=== PATIENT | female | born 1945 | race Caucasian/White ===

== ENCOUNTER → 2019-02-07 | Outpatient (CLI) | payer MEDICARE ==
--- NOTE | 2019-02-07 18:30 | REP ---
LEFT LOWER EXTREMITY DUPLEX DOPPLER ARTERIAL ULTRASOUND: Real-time ultrasound evaluation and duplex Doppler interrogation of the left lower extremity arterial system is performed. The patient has a patent bypass graft connecting the left common femoral artery to the tibial peroneal trunk. The intervening [place] superficial femoral artery is occluded and there is reversal of flow in the left popliteal artery. Diffuse biphasic waveforms are noted. The proximal anterior tibial artery is supplied by the flow from the popliteal and tibial peroneal trunk, proximal aspect. Plaquing is seen in the common femoral artery with increased flow velocity suggesting some degree of stenosis. LEFT PSV Common femoral artery 262 cm/s Profunda 124 cm/s Bypass graft proximal anastomosis 193 cm/s Proximal bypass graft 93 cm/s Distal bypass graft 71.5 cm/s Tibial peroneal trunk bypass graft 68.1 cm/s Proximal MEET 64.4 cm/s Tibial peroneal trunk 110 cm/s Proximal STAFF DEVELOPMENT NURSE 163 cm/s Distal STAFF DEVELOPMENT NURSE 51.8 cm/s Distal MEET 75.7 cm/s Incidental note is made of a Pérez's cyst 3.3 x 1.0 x 1.7 cm. IMPRESSION: Patent bypass graft connecting the common femoral artery to the tibial peroneal trunk with intervening occlusion of the [place] superficial femoral artery and reversal of flow in the popliteal artery which supplies the proximal MEET. There may be some degree of stenosis of the common femoral artery with elevated peak systolic velocity and plaquing noted. Electronically Signed by Luciano Jose MD 02/10/2019 10:05 A
--- NOTE | 2019-02-07 18:52 | REP ---
Duplex carotid sonography: History: Carotid stenosis. Status post bypass graft. Findings: Antegrade flow is observed in both vertebral arteries. Right carotid: The right common carotid artery is unremarkable on two-dimensional scanning. There is mild mixed plaquing in the bulb and proximal ICA on the right side. Color flow and spectral Doppler interrogation are unremarkable in the ICA. Mildly elevated systolic velocities are observed in the external carotid artery. Velocity chart right carotid: CCA PSV 91 cm/s ICA PSV 98 cm/s ICA EDV 17 cm/s ECA PSV 185 cm/s Right ICA/CCA ratio normal 1.1 Impression: Less than 50% narrowing in the ICA on the right side by velocity criteria. Left carotid: Left common carotid artery is unremarkable on two-dimensional scanning. There is mild mixed plaquing in the bulb and proximal ICA. Stenotic systolic velocities are observed in the ICA tracing on the left side. Mildly elevated ECA velocities are observed. Velocity chart left carotid: CCA PSV 115 cm/s ICA PSV 260 cm/s ICA EDV 35 cm/s ECA PSV 162 cm/s Left ICA/CCA ratio elevated 2.3. Impression: 50%-69% category narrowing in the left ICA by Doppler velocity criteria, probably near the upper end of this range. Electronically Signed by Vidal James MD 02/07/2019 07:31 P
== END ==
LOC: M RAD 12:13
PROVIDERS: ATTEND Physician Assistant Medical
DX: I65.23 Occlusion and stenosis of bilateral carotid arteries (principal); I77.1 Stricture of artery

== ENCOUNTER → 2020-02-01 | Outpatient (CLI) | payer MEDICARE ==
--- NOTE | 2020-02-01 11:54 | REP ---
Unilateral left lower extremity arterial Doppler ultrasound: History: "Leg bypass ". Comparison study February 07, 2019. Findings: Ankle brachial index could not be acquired due to noncompressible vessels. A patent bypass graft is seen from the right common femoral to the tibioperoneal trunk. The [place] superficial femoral artery is occluded with reversed reconstituted flow in the popliteal. Biphasic waveforms are noted in the left lower extremity. Extensive calcific plaquing is seen in the common femoral artery and [place] femoral artery with elevated velocities suggesting stenosis. A proximal anterior tibial artery stenosis is suspected. There is little change from the comparison study. Left lower extremity arterial Doppler velocity chart: Proximal bypass graft anastomosis 239 cm/S Mid graft 76 Distal thigh 60 Popliteal fossa graft 46 Distal anastomoses 46 Left CF A 275 cm/S Profunda 237 - 119 Proximal SFA O occluded Mid SFA occluded Distal SFA occluded Popliteal reverse flow 40 cm/S Proximal AT A 256 - 141 Tibioperoneal trunk 46 Proximal EMERGENCY ROOM CLINICIAN 70 Distal EMERGENCY ROOM CLINICIAN 42 Distal AT A 73 Electronically Signed by Vidal James MD 02/01/2020 11:46 A
--- NOTE | 2020-02-01 12:07 | REP ---
Duplex carotid sonography: History: Carotid stenosis. Comparison study February 07, 2019. Findings: Antegrade flow is again observed in both vertebral arteries. A Right carotid: Right common carotid artery shows minimal diffuse intimal thickening. There is mixed plaquing in the bulb and proximal ICA on two-dimensional scanning. Color flow and spectral Doppler interrogation are unremarkable on the right. Velocity chart right carotid: Right CCA PSV 81 cm/S Right ICA PSV 112 Right ICA EDV 26 Right ECA PSV 172 Right ICA/cc ratio normal 1.3 Impression: Less than 50% category narrowing in the right ICA by Doppler velocity criteria. Doppler velocities have not changed significantly from the prior study. Left carotid: The left common carotid artery shows mild diffuse intimal thickening. There is mixed plaquing in the bulb proximal ICA and proximal ECA on the left side on two-dimensional scanning. Stenotic flow velocities is observed in the ICA segment on the left and to some degree in the ECA similar to the prior study. Velocity chart left carotid: Left CCA PSV 96 cm/S ICA PSV 200.5 cm/S E DV 34 cm/S ECA PSV 190 cm/S Left ICA/cc ratio 2.09 Impression: 50-69% category narrowing in the left ICA by Doppler velocity criteria. Doppler velocities are similar to the prior study Electronically Signed by Vidal James MD 02/01/2020 11:59 A
== END ==
LOC: M RAD 10:20
PROVIDERS: ATTEND Surgery
DX: I70.302 Unspecified atherosclerosis of unspecified type of bypass graft(s) of the extremities, left leg (principal); I65.23 Occlusion and stenosis of bilateral carotid arteries; Z95.820 Peripheral vascular angioplasty status with implants and grafts